=== PATIENT | male | born 1935 | race African-American/Black ===

== ENCOUNTER 2020-02-24 19:54 | Inpatient (IN) | payer MEDICARE, MEDICAID ==
[~2020-02-24] VITALS: Ht 188 cm; Wt 93.5 kg
[~2020-02-24 19:54] MED LIST: ATEN-42 PO; DYZ PO
[2020-02-24] MEDS ORDERED: ACETAMINOPHEN 325MG TABLET PO ONE (21:30)
[2020-02-24] MEDS ORDERED: LEVOFLOXACIN 750MG PREMIX 150 ML IV ONE (21:30)
[2020-02-24 22:07] LABS: HEMATOCRIT. 41.7 % (42.0-52.0); HEMOGLOBIN. 13.8 g/dL (14.0-18.0); MEAN CORPUSCULAR VOLUME 84.9 fL (80.0-94.0); MEAN PLATELET VOLUME 8.1 fl (7.4-10.4); PLATELET 233 x1000/uL (130-400); RED BLOOD CELL COUNT 4.91 mill/uL (4.7-6.1); RED CELL DISTRIBUTION WIDTH 15.4 % (11.6-14.6)
[2020-02-24 22:12] LABS: CHLORIDE 105 mEq/L (98-107); CLARITY URINE CLEAR (CLEAR); COLOR URINE YELLOW (YELLOW); KETONES URINE NEGATIVE (NEGATIVE); LEUKOCYTE ESTERASE URINE NEGATIVE (NEGATIVE); NITRITE URINE NEGATIVE (NEGATIVE); OCCULT BLOOD URINE TRACE (NEGATIVE); PROTEIN URINE 2+ (NEGATIVE); SPECIFIC GRAVITY URINE 1.017 (1.005-1.030)
[2020-02-24 22:15] LABS: INR 1.2; PARTIAL THROMBOPLASTIN TIME 31.6 sec (23.4-31.0); PROTHROMBIN TIME 12.2 sec (9.6-11.0)
[2020-02-24 22:50] LABS: PLATELET ESTIMATE NORMAL
[2020-02-24] MEDS ORDERED: ASPIRIN 325MG EC TABLET PO ONE (23:30)
[2020-02-24] MEDS ORDERED: MAGNESIUM/ALUMINUM HYDROXIDE/SIMETHICONE 30ML UDC PO PRN (23:45)
[2020-02-24] MEDS ORDERED: MAGNESIUM HYDROXIDE 400MG/5ML 30ML UDC PO PRN (23:45)
[2020-02-24] MEDS ORDERED: ONDANSETRON HCL 4MG/2ML INJ IV PRN (23:45)
[2020-02-24] MEDS ORDERED: CLONIDINE 0.1MG TABLET PO PRN (23:45)
[2020-02-24] MEDS ORDERED: HYDROCODONE/ACETAMINOPHEN 5/325MG TABLET PO PRN (23:45)
[2020-02-24] MEDS ORDERED: GUAIFENESIN/CODEINE 100-10MG/5ML UDC PO PRN (23:45)
[2020-02-24] MEDS ORDERED: ZOLPIDEM TARTRATE 5MG TABLET PO PRN (23:45)
[2020-02-24] MEDS ORDERED: ACETAMINOPHEN 325MG TABLET PO PRN ×2 (23:45)
[2020-02-24] MEDS ORDERED: DIPHENHYDRAMINE 50MG/ML VIAL IV PRN (23:45)
[2020-02-24] MEDS ORDERED: ALBUTEROL 6.7GM HFA INHALER ORI PRN (23:45)
[2020-02-25] MEDS ORDERED: AZITHROMYCIN 500 MG in DEXT 5% WATER 250 ML IV SCH (02:00)
[2020-02-25] MEDS ORDERED: GUAIFENESIN/CODEINE 200-20MG/10ML UDC PO PRN (02:09)
[2020-02-25 02:30] VITALS: BP_SYST 114; BP_SYST 125; BP_DIAS 88
[2020-02-25] MEDS ORDERED: DYR5 MT (03:45)
[2020-02-25 04:00] VITALS: BP 108/71
[2020-02-25] MEDS: SODIUM CHLORIDE 0.9% INJ 3ML FLUSH IVF SCH ×3 (06:19→20:11)
[2020-02-25 08:00] VITALS: BP 103/73
[2020-02-25] MEDS ORDERED: CEFTRIAXONE 1 G PREMIX 50 ML IV SCH (09:00)
[2020-02-25] MEDS: GUAIFENESIN 600MG ER TABLET PO SCH ×2 (09:08→20:10)
[2020-02-25] MEDS: ENOXAPARIN 30MG/0.3ML SYR SUBCUT SCH (09:08)
[2020-02-25 13:18] VITALS: BP 106/71
[2020-02-25 15:30] VITALS: BP 111/83
[2020-02-25 20:00] VITALS: BP 112/70
[2020-02-25] MEDS: FAMOTIDINE 20MG TABLET PO SCH (20:10)
[2020-02-26] VITALS: BP 110/72
[2020-02-26 04:00] VITALS: BP 114/73
[2020-02-26] MEDS: SODIUM CHLORIDE 0.9% INJ 3ML FLUSH IVF SCH ×3 (06:06→21:30)
[2020-02-26 08:00] VITALS: BP 126/82
[2020-02-26] MEDS: ENOXAPARIN 30MG/0.3ML SYR SUBCUT SCH (08:57)
[2020-02-26] MEDS: GUAIFENESIN 600MG ER TABLET PO SCH ×2 (08:57→20:05)
[2020-02-26] MEDS: AZITHROMYCIN 500 MG in DEXT 5% WATER 250 ML IV SCH (10:10)
[2020-02-26 11:48] VITALS: BP 111/71
[2020-02-26] MEDS: CEFTRIAXONE 1 G PREMIX 50 ML IV SCH (13:44)
[2020-02-26 16:00] VITALS: BP 123/86
[2020-02-26 20:00] VITALS: BP 122/77
[2020-02-26] MEDS: FAMOTIDINE 20MG TABLET PO SCH (20:05)
[2020-02-27] VITALS: BP 123/86
[2020-02-27 04:00] VITALS: BP 124/76
[2020-02-27] MEDS: SODIUM CHLORIDE 0.9% INJ 3ML FLUSH IVF SCH ×3 (06:07→21:01)
[2020-02-27 08:00] VITALS: BP 131/85
[2020-02-27] MEDS: GUAIFENESIN 600MG ER TABLET PO SCH ×2 (09:54→21:00)
[2020-02-27] MEDS: AZITHROMYCIN 500 MG in DEXT 5% WATER 250 ML IV SCH (09:55)
[2020-02-27] MEDS: ENOXAPARIN 30MG/0.3ML SYR SUBCUT SCH (09:55)
[2020-02-27] MEDS: CEFTRIAXONE 1 G PREMIX 50 ML IV SCH (09:55)
[2020-02-27 12:00] VITALS: BP 131/88
[2020-02-27 16:00] VITALS: BP 124/87
[2020-02-27 20:00] VITALS: BP 111/79
[2020-02-27] MEDS: FAMOTIDINE 20MG TABLET PO SCH (21:00)
[2020-02-27] MEDS ORDERED: LEVOFLOXACIN 500MG PREMIX 100 ML IV SCH (22:00)
[2020-02-28 00:03] VITALS: BP 116/77
[2020-02-28 04:00] VITALS: BP 105/75
[2020-02-28] MEDS: SODIUM CHLORIDE 0.9% INJ 3ML FLUSH IVF SCH ×2 (05:39→13:17)
[2020-02-28] MEDS: GUAIFENESIN 600MG ER TABLET PO SCH (08:21)
[2020-02-28] MEDS: ENOXAPARIN 30MG/0.3ML SYR SUBCUT SCH (08:21)
[2020-02-28] MEDS: CEFTRIAXONE 1 G PREMIX 50 ML IV SCH (08:23)
[2020-02-28 08:58] VITALS: BP 117/73
[2020-02-28 11:47] VITALS: BP 124/86
[2020-02-28 15:42] VITALS: BP 121/84
[2020-02-28 17:07] VITALS: BP 121/84
[2020-02-28] MEDS ORDERED: LEVOFLOXACIN 250MG PREMIX 50 ML IV SCH (21:00)
== END 2020-02-28 17:24 | disposition home or self-care (01) | DRG 871 ==
LOC: ER 19:54 → 7WST 23:20 → ENRESERV 23:54
PROVIDERS: ADMIT Internal Medicine; ATTEND Internal Medicine
DX: A41.9 Sepsis, unspecified organism (principal); J96.00 Acute respiratory failure, unspecified whether with hypoxia or hypercapnia; J18.9 Pneumonia, unspecified organism; N17.9 Acute kidney failure, unspecified; R17 Unspecified jaundice; D72.810 Lymphocytopenia; I12.9 Hypertensive chronic kidney disease with stage 1 through stage 4 chronic kidney disease, or unspecified chronic kidney disease; I72.4 Aneurysm of artery of lower extremity; K40.90 Unilateral inguinal hernia, without obstruction or gangrene, not specified as recurrent; N18.9 Chronic kidney disease, unspecified; N40.0 Benign prostatic hyperplasia without lower urinary tract symptoms; Z20.828 Contact with and (suspected) exposure to other viral communicable diseases; Z78.9 Other specified health status; Z85.46 Personal history of malignant neoplasm of prostate; Z79.899 Other long term (current) drug therapy
CPT/HCPCS: 36415; 71045; 80053; 81003; 83605; 83880; 84145; 84484; 85025; 87070; 87635; 93005; 93970; 99291; J0456; J0696; J1650; J1956; J7060

== ENCOUNTER → 2020-03-22 | Outpatient (CLI) | payer MEDICARE, MEDICAID ==
[~2020-03-22] MED LIST changes: +DYR5 MT
== END | disposition home or self-care (01) ==
LOC: RAD 07:26
PROVIDERS: ATTEND Internal Medicine
DX: J98.11 Atelectasis (principal); J18.9 Pneumonia, unspecified organism; M47.819 Spondylosis without myelopathy or radiculopathy, site unspecified
CPT/HCPCS: 71046

== ENCOUNTER 2020-10-13 06:58 | Emergency (ER) | payer MEDICARE, MEDICAID ==
[~2020-10-13] VITALS: Ht 188 cm; Wt 97.0 kg
[2020-10-13 08:06] LABS: BASOPHILS % 1.1 % (0.0-2.0); EOSINOPHILS % 1.6 % (0.0-5.0); HEMATOCRIT. 41.4 % (42.0-52.0); HEMOGLOBIN. 13.7 g/dL (14.0-18.0); LYMPHOCYTES % 25.9 % (20.0-50.0); MEAN CORPUSCULAR HEMOGLOBIN 28.1 pg (28.0-32.0); MEAN PLATELET VOLUME 8.2 fl (7.4-10.4); MONOCYTES % 8.7 % (2.0-8.0); NEUTROPHILS % 62.7 % (40.0-76.0); PLATELET 202 x1000/uL (130-400); RED BLOOD CELL COUNT 4.87 mill/uL (4.7-6.1); RED CELL DISTRIBUTION WIDTH 14.6 % (11.6-14.6)
[2020-10-13 08:12] LABS: CHLORIDE 107 mEq/L (98-107)
[2020-10-13 08:15] LABS: INR 1.1; PROTHROMBIN TIME 11.2 sec (9.6-11.0)
[2020-10-13 08:17] LABS: ETHANOL BLOOD < 10 mg/dL
[2020-10-13] MEDS ORDERED: MAGNESIUM/ALUMINUM HYDROXIDE/SIMETHICONE 30ML UDC PO ONE (08:30)
[2020-10-13] MEDS ORDERED: LABETALOL 5MG/ML SYR 20 MG/4 ML SYRINGE IV ONE (12:15)
[2020-10-13] MEDS ORDERED: IOHEXOL-350 100 ML BOTTLE ONE (13:58)
[2020-10-13] MEDS ORDERED: LABETALOL HCL 20MG/4ML CARPUJECT IV ONE (14:00)
[2020-10-13 14:14] VITALS: BP 133/98
== END 2020-10-13 14:18 | disposition short-term general hospital (02) ==
LOC: ER 06:58 → CANBEDREQ 14:05 → ER 14:18
DX: I71.02 Dissection of abdominal aorta (principal); I72.3 Aneurysm of iliac artery; I72.4 Aneurysm of artery of lower extremity; I12.9 Hypertensive chronic kidney disease with stage 1 through stage 4 chronic kidney disease, or unspecified chronic kidney disease; Z20.822 Contact with and (suspected) exposure to COVID-19; N18.9 Chronic kidney disease, unspecified
CPT/HCPCS: 36415; 71045; 71275; 74174; 74176; 75635; 80053; 80320; 83690; 83880; 84484; 85025; 85610; 87426; 93005; 96374; 96376; 99285; J3490; Q9967; G0480

== ENCOUNTER 2021-11-30 17:36 | Emergency (ER) | payer MEDICARE, MEDICAID ==
[~2021-11-30] VITALS: Ht 188 cm; Wt 92.0 kg
[2021-11-30 23:20] VITALS: BP 152/85
== END 2021-11-30 23:25 | disposition home or self-care (01) ==
LOC: ER 17:36
DX: M25.471 Effusion, right ankle (principal); E78.00 Pure hypercholesterolemia, unspecified; I10 Essential (primary) hypertension; Z98.890 Other specified postprocedural states
CPT/HCPCS: 36415; 85379; 93970; 99284

== ENCOUNTER 2022-06-25 07:26 | Emergency (ER) | payer MEDICARE, MEDICAID ==
[~2022-06-25] VITALS: Ht 188 cm; Wt 86.1 kg
[2022-06-25 08:42] LABS: BASOPHILS % 1.1 % (0.0-2.0); EOSINOPHILS % 0.6 % (0.0-5.0); HEMATOCRIT. 37.6 % (42.0-52.0); HEMOGLOBIN. 12.2 g/dL (14.0-18.0); LYMPHOCYTES % 20.1 % (20.0-50.0); MEAN CORPUSCULAR HEMOGLOBIN 26.2 pg (28.0-32.0); MEAN CORPUSCULAR VOLUME 80.5 fL (80.0-94.0); MEAN PLATELET VOLUME 7.9 fl (7.4-10.4); MONOCYTES % 7.2 % (2.0-8.0); PLATELET 186 x1000/uL (130-400); RED BLOOD CELL COUNT 4.67 mill/uL (4.7-6.1); RED CELL DISTRIBUTION WIDTH 18.2 % (11.6-14.6)
[2022-06-25 08:52] LABS: CHLORIDE 106 mEq/L (98-107)
[2022-06-25] MEDS ORDERED: ASPIRIN 325MG TABLET PO ONE (09:45)
[2022-06-25 12:55] VITALS: BP 147/86
== END 2022-06-25 12:57 | disposition home or self-care (01) ==
LOC: ER 07:26
DX: R00.2 Palpitations (principal); M19.022 Primary osteoarthritis, left elbow; I10 Essential (primary) hypertension; E78.00 Pure hypercholesterolemia, unspecified; Z98.890 Other specified postprocedural states
CPT/HCPCS: 36415; 71045; 73080; 80053; 84484; 85025; 93005; 99285

== ENCOUNTER 2022-08-10 16:02 | Emergency (ER) | payer MEDICARE, MEDICAID ==
[~2022-08-10] VITALS: Ht 182.9 cm; Wt 91.0 kg
[2022-08-10 16:09] VITALS: BP 138/82
[2022-08-10 19:42] LABS: BASOPHILS % 1.1 % (0.0-2.0); EOSINOPHILS % 0.8 % (0.0-5.0); HEMATOCRIT. 36.7 % (42.0-52.0); HEMOGLOBIN. 12.1 g/dL (14.0-18.0); LYMPHOCYTES % 24.5 % (20.0-50.0); MEAN CORPUSCULAR HEMOGLOBIN 26.6 pg (28.0-32.0); MEAN CORPUSCULAR VOLUME 80.8 fL (80.0-94.0); MEAN PLATELET VOLUME 7.7 fl (7.4-10.4); MONOCYTES % 10.2 % (2.0-8.0); NEUTROPHILS % 63.4 % (40.0-76.0); PLATELET 187 x1000/uL (130-400); RED BLOOD CELL COUNT 4.54 mill/uL (4.7-6.1)
[2022-08-11] MEDS ORDERED: GABA100C MT (01:29)
== END 2022-08-11 02:17 | disposition home or self-care (01) ==
LOC: ER 16:16
DX: R25.1 Tremor, unspecified (principal); E78.00 Pure hypercholesterolemia, unspecified; I10 Essential (primary) hypertension; Z79.899 Other long term (current) drug therapy
CPT/HCPCS: 36415; 80048; 85025; 99283

== ENCOUNTER 2025-03-10 08:13 | Emergency (ER) | payer MEDICARE, MEDICAID ==
[~2025-03-10] VITALS: Ht 188 cm; Wt 91.0 kg
[~2025-03-10 08:13] MED LIST changes: +GABA100C MT
[2025-03-10 08:18] VITALS: O2SAT 96
[2025-03-10] MEDS: MAGNESIUM/ALUMINUM HYDROXIDE/SIMETHICONE 30ML UDC PO STA (09:27)
[2025-03-10] MEDS: ONDANSETRON 4MG ODT PO STA (09:28)
[2025-03-10] MEDS: DICYCLOMINE 10 MG/5 ML ORAL SYR PO STA (09:28)
[2025-03-10] MEDS: DICYCLOMINE HCL 10MG CAPSULE PO SCH (09:30)
[2025-03-10 09:43] LABS: BASOPHILS % 1.2 % (0.0-2.0); EOSINOPHILS % 2.2 % (0.0-5.0); HEMATOCRIT. 42.7 % (42.0-52.0); HEMOGLOBIN. 13.6 g/dL (14.0-18.0); LYMPHOCYTES % 28.7 % (20.0-50.0); MEAN PLATELET VOLUME 7.9 fl (7.4-10.4); MONOCYTES % 9.5 % (2.0-8.0); NEUTROPHILS % 58.4 % (40.0-76.0); PLATELET 163 x1000/uL (130-400); RED BLOOD CELL COUNT 5.05 mill/uL (4.7-6.1); RED CELL DISTRIBUTION WIDTH 16.6 % (11.6-14.6)
[2025-03-10 09:57] LABS: INR 1.1
[2025-03-10 10:05] LABS: CREATININE 1.8 mg/dL (0.6-1.3); TROPONIN I HIGH SENSITIVITY 38 ng/L (3.0-53); UREA NITROGEN BLOOD 28 mg/dL (9-23)
[2025-03-10 10:19] LABS: CLARITY URINE CLEAR (CLEAR); COLOR URINE YELLOW (YELLOW); GLUCOSE URINE 3+ (NEGATIVE); KETONES URINE NEGATIVE (NEGATIVE); LEUKOCYTE ESTERASE URINE NEGATIVE (NEGATIVE); NITRITE URINE NEGATIVE (NEGATIVE); OCCULT BLOOD URINE TRACE (NEGATIVE); PH URINE 5.5 (4.5-8.0); PROTEIN URINE 1+ (NEGATIVE); SPECIFIC GRAVITY URINE 1.017 (1.005-1.030); UROBILINOGEN URINE 0.2 E.U./dL (0.2-1.0)
[2025-03-10 10:45] LABS: RBC URINE 0-2 /hpf (0-2); SQUAMOUS EPITHELIAL CELL URINE FEW /lpf (RARE/1+); WBC URINE 0-2 /hpf (0-2)
[2025-03-10 10:46] VITALS: BP 113/66; PULSE 60; RESP 18; TEMP 36.8; O2SAT 99
[2025-03-10 10:46] LABS: BACTERIA URINE NONE SEEN
== END 2025-03-10 10:50 | disposition home or self-care (01) ==
LOC: ER 08:13
DX: M19.011 Primary osteoarthritis, right shoulder (principal); M19.012 Primary osteoarthritis, left shoulder; E78.00 Pure hypercholesterolemia, unspecified; I10 Essential (primary) hypertension; R06.02 Shortness of breath; Z79.899 Other long term (current) drug therapy; Z98.890 Other specified postprocedural states
CPT/HCPCS: 99285; 71045; 80048; 81003; 83880; 83690; 85025; 85610; 84484; 36415; 93005; Q0162